=== PATIENT | male | born 1995 | race Caucasian/White ===

== ENCOUNTER 2018-11-30 22:31 | Emergency (ER) | payer OTHER ==
--- OUTSIDE RECORDS SUMMARY | 2018-11-30 22:46 | XMS REPORT | Continuity of Care Document ---
:1995 External Reference #:[id number] Author Name Leda Hernandez Care Team Providers Name Role Phone Ravinder Maria M.D. Primary Care Physician Unavailable Payers Type Date Identification Numbers Payment Provider Subscriber Effective: 2016 Policy Number: [id number] [employer] Number: [id number] [address] PayID: [id number] [place] [address] Advance Directives Description No Information Available Problems Description No Information Family History Date Family Member(s) Problem(s) Comments General No Current Problems Social History Type Date Description Comments Sex Unknown Lives With Roommate Occupation Student ETOH Use Denies alcohol use Tobacco Use Start: Unknown Patient has never smoked Smoking Status Reviewed: 11/21/18 Patient has never smoked Exercise Type/Frequency Exercises regularly Allergies, Adverse Reactions, Alerts Description No Known Drug Allergies Medications Medication Date Status Form Strength Qnty SIG Indications Ordering Provider Ibuprofen 200 00/00/00 Active Tablets 200mg 400-600mg Unknown 00 every 6 hours as needed for pain. No Active 11/03/19 Hx Unknown Medications 17 - 10/30/19 19 Immunizations Description No Information Available Vital Signs Date Vital Result Comment 11/21/2018 8:43am Height 67.5 inches 5'7.50" Weight 145.00 lb Heart Rate 70 /min BP Systolic 104 mmHg BP Diastolic 68 mmHg Respiratory Rate 12 /min Pain Level 1 BMI (Body Mass Index) 22.4 kg/m2 10/30/2018 1:29pm Height 67.5 inches 5'7.50" Weight 156.00 lb Heart Rate 72 /min BP Systolic 116 mmHg BP Diastolic 78 mmHg Body Temperature 97.1 F Pain Level 5 BMI (Body Mass Index) 24.1 kg/m2 07/25/2018 8:05am Height 67.5 inches 5'7.50" Weight 142.00 lb Heart Rate 70 /min BP Systolic 106 mmHg BP Diastolic 68 mmHg Respiratory Rate 12 /min Pain Level 0 BMI (Body Mass Index) 21.9 kg/m2 04/25/2017 9:29am Height 67.5 inches 5'7.50" Weight 140.00 lb Heart Rate 72 /min Respiratory Rate 15 /min Pain Level 2 BMI (Body Mass Index) 21.6 kg/m2 03/14/2017 9:37am Height 67.5 inches 5'7.50" Weight 140.00 lb Heart Rate 66 /min BP Systolic Sitting 110 mmHg BP Diastolic Sitting 70 mmHg Respiratory Rate 14 /min Body Temperature 96.2 F Pain Level 3 BMI (Body Mass Index) 21.6 kg/m2 11/03/2016 2:49pm Height 67 inches 5'7" Weight 140.00 lb Heart Rate 86 /min Respiratory Rate 18 /min BMI (Body Mass Index) 21.9 kg/m2 11/03/2016 2:23pm Pain Level 4 Results Description No Information Available Procedures Description No Information Available Encounters Type Date Location Provider Dx Diagnosis Office Visit 10/30/2018 [facility] M25.511 Pain in right 1:30p [facility] Suzy Evans MD shoulder 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 S43.401A Unspecified sprain of right shoulder joint, init encntr Office Visit 04/25/2017 9:30a [facility] M25.511 Pain in right Services [facility] shoulder [facility] S43.401D Unspecified sprain of right shoulder joint, subs encntr Office Visit 03/14/2017 9:30a Bindu Varela M25.511 Pain in right Services Of MD [facility] shoulder [facility] M75.51 Bursitis of right shoulder S43.491A Other sprain of right shoulder joint, initial encounter Office Visit 11/03/2016 2:30p [facility] M25.511 Pain in right Services [facility] shoulder [facility].A[facility] M75.41 Impingement syndrome of right shoulder Plan of Treatment Future Appointment(s):12/11/2018 3:15 pm - Garcia Evans [facility]11/21/2018 - Garcia Evans, MDM24.411 Recurrent dislocation, right shoulderFollow up:Follow up: as needed. Patient may call [facility] to schedule surgery prior to next clinic visit.
[2018-12-01] MEDS ORDERED: NS 0.9% 1000 ML** 1,000 ML IV ONE ×2 (00:37→01:45)
[2018-12-01] MEDS ORDERED: Ondansetron INJ* 2 MG/ML VIAL IV ONE (00:37)
[2018-12-01 00:52] LABS: ABS Basophils 0 10^3/ul (0-0.2); ABS Eosinophils 0 10^3/ul (0-0.6); ABS Lymphocytes 0.9 10^3/ul (1.0-4.8); ABS Monocytes 0.6 10^3/ul (0-0.8); ABS Neutrophils 6.8 10^3/ul (1.5-7.7); ABS Nucleated RBC 0 10^3/ul; Eosinophil % 0.4 %; Hematocrit 44 % (42-52); Hemoglobin 14.9 g/dl (14.0-18.0); Lymphocyte % 11.2 %; Mean Corpuscular HGB Conc 34 g/dl (31-36); Mean Corpuscular Hemoglobin 30 pg (27-31); Mean Corpuscular Volume 88 fL (80-94); Mean Platelet Volume 7.9 fL (7.4-10.4); Nucleated Red Blood Cells % 0; Platelet Count 268 10^3/ul (150-450); Red Blood Count 4.98 10^6/ul (4.00-5.40); Red Cell Distribution Width 13 % (10.5-15); White Blood Count 8.3 10^3/ul (3.5-10.8)
[2018-12-01 01:09] LABS: ALT 20 U/L (7-52); AST 18 U/L (13-39); Albumin 4.5 g/dL (3.2-5.2); Albumin/Globulin Ratio 1.7 (1-3); Alkaline Phosphatase 75 U/L (34-104); Anion Gap 9 mmol/L (2-11); BUN/Creatinine Ratio 16.2 (8-20); Blood Urea Nitrogen 16 mg/dL (6-24); CO2 Carbon Dioxide 26 mmol/L (22-32); Calcium 9.6 mg/dL (8.6-10.3); Chloride 101 mmol/L (101-111); EGFR African American 115.5 (>60); EGFR Non-African American 95.4 (>60); Globulin 2.6 g/dL (2-4); Glucose 113 mg/dL (70-100); Potassium 3.7 mmol/L (3.5-5.0); Sodium 136 mmol/L (135-145); Total Protein 7.1 g/dL (6.4-8.9)
[2018-12-01] MEDS ORDERED: Dicyclomine CAP* 10 MG PO ONE (01:19)
[2018-12-01] MEDS ORDERED: Acetaminophen TAB* 325 MG PO ONE (01:20)
[2018-12-01 01:48] LABS: Urine Appearance Clear; Urine Bilirubin Negative (Negative); Urine Blood Negative (Negative); Urine Color Straw; Urine Glucose Negative (Negative); Urine Ketones Negative (Negative); Urine Nitrite Negative (Negative); Urine Protein Negative (Negative); Urine Specific Gravity 1.006 (1.010-1.030); Urine Urobilinogen Negative (Negative)
[2018-12-01] MEDS ORDERED: Ondansetron INJ* 2 MG/ML VIAL ONE (02:05)
[2018-12-01] MEDS ORDERED: Metoclopramide IV* 5 MG/ML 2 ML VIAL IV ONE (02:05)
--- NOTE | 2018-12-01 03:11 | ED ---
Nausea/Vomiting/Diarrhea HPI - HPI Summary HPI Summary: Patient complains of sudden onset nausea vomiting diarrhea and crampy abdominal pain starting this a.m. Vomiting 8 today, diarrhea 15 times. Abdominal pain is diffuse, bilateral, constant, first 4/10. Abdominal pain improves with vomiting or bowel movement. Denies fever, cough, sore throat, CP, SOB, change in urine, penis or testicle symptoms. Medical history is none. Abdominal surgical history is none. - History of Current Complaint Chief Complaint: EDAbdPain Stated Complaint: FLU LIKE SYMPTOMS Time Seen by Provider: 12/01/18 00:35 Hx Obtained From: Patient Onset/Duration: Sudden Onset Timing: Constant Severity Initially: Mild Severity Currently: Mild Pain Intensity: 3 Pain Scale Used: 0-10 Numeric Location: Diffuse Character: Cramping Aggravating Factor(s): Nothing Alleviating Factor(s): Nothing Nausea/Vomiting Presence: Nauseated, Vomiting Vomiting Frequency: Every 15-60 minutes Vomiting Characteristics: Nonbilious Diarrhea Presence: Yes Diarrhea Frequency: Every 15-60 minutes Diarrhea Characteristics: Watery - Allergies/Home Medications Allergies/Adverse Reactions: Allergies Allergy/AdvReac Type Severity Reaction Status Date / Time No Known Allergies Allergy Verified 11/08/18 10:42 PMH/Surg Hx/FS Hx/Imm Hx Endocrine/Hematology History: Denies: Hx Diabetes Cardiovascular History: Denies: Hx Hypertension, Hx Pacemaker/ICD Respiratory History: Denies: Hx Asthma History: Denies: Hx Dialysis, Hx Renal Disease Sensory History: Denies: Hx Eye Prosthesis, Hx Hearing Aid Opthamlomology History: Denies: Hx Legally Blind EENT History: Denies: Hx Deafness Neurological History: Denies: Hx Dementia Psychiatric History: Denies: Hx Panic Disorder - Surgical History Surgery Procedure, Year, and Place: RIGHT SHOULDER WITH HARDWARE 2016 Infectious Disease History: No Infectious Disease History: Denies: Traveled Outside the [place] in Last 30 Days - Social History Alcohol Use: None Substance Use Type: Reports: None Smoking Status (MU): Never Smoked Tobacco Review of Systems Constitutional: Negative Eyes: Negative ENT: Negative Cardiovascular: Negative Respiratory: Negative Positive: Abdominal Pain, Vomiting, Diarrhea, Nausea Genitourinary: Negative Musculoskeletal: Negative Skin: Negative Neurological: Negative Psychological: Normal All Other Systems Reviewed And Are Negative: Yes Physical Exam - Summary Physical Exam Summary: Abdominal exam unremarkable In all quadrants. No active vomiting or diarrhea here in the ED. Triage Information Reviewed: Yes Vital Signs On Initial Exam: Initial Vitals Temp Pulse Resp BP Pulse Ox 100.7 F 96 16 139/83 97 11/30/18 22:36 11/30/18 22:36 11/30/18 22:36 11/30/18 22:36 11/30/18 22:36 Vital Signs Reviewed: Yes Appearance: Positive: Well-Appearing Skin: Positive: Warm Head/Face: Positive: Normal Head/Face Inspection Eyes: Positive: Normal Neck: Positive: Supple Respiratory/Lung Sounds: Positive: Clear to Auscultation Cardiovascular: Positive: Normal Abdomen Description: Positive: Nontender Musculoskeletal: Positive: Normal Neurological: Positive: Normal Psychiatric: Positive: Normal AVPU Assessment: Alert - [place] Coma Scale Best Eye Response: 4 - Spontaneous Best Motor Response: 6 - Obeys Commands Best Verbal Response: 5 - Oriented Coma Scale Total: 15 Diagnostics - Vital Signs Vital Signs Temp Pulse Resp BP Pulse Ox 12/01/18 02:39 64 121/47 96 12/01/18 02:09 82 143/49 96 12/01/18 02:00 74 99 12/01/18 01:39 86 137/52 98 12/01/18 01:09 86 128/62 99 12/01/18 01:00 79 99 12/01/18 00:41 90 97 12/01/18 00:39 87 134/67 96 11/30/18 22:36 100.7 F 96 16 139/83 97 - Laboratory Lab Results: Lab Results 12/01/18 12/01/18 12/01/18 Range/Units 00:44 00:44 00:44 WBC 8.3 (3.5-10.8) 10^3/ul RBC 4.98 (4.00-5.40) 10^6/ul Hgb 14.9 (14.0-18.0) g/dl Hct 44 (42-52) % MCV 88 (80-94) fL MCH 30 (27-31) pg MCHC 34 (31-36) g/dl RDW 13 (10.5-15) % Plt Count 268 (150-450) 10^3/ul MPV 7.9 (7.4-10.4) fL Neut % (Auto) 81.1 % Lymph % (Auto) 11.2 % [place] % (Auto) 6.9 % Eos % (Auto) 0.4 % Baso % (Auto) 0.4 % Absolute Neuts (auto) 6.8 (1.5-7.7) 10^3/ul Absolute Lymphs (auto) 0.9 L (1.0-4.8) 10^3/ul Absolute Monos (auto) 0.6 (0-0.8) 10^3/ul Absolute Eos (auto) 0 (0-0.6) 10^3/ul Absolute Basos (auto) 0 (0-0.2) 10^3/ul Absolute Nucleated RBC 0 10^3/ul Nucleated RBC % 0 Sodium 136 (135-145) mmol/L Potassium 3.7 (3.5-5.0) mmol/L Chloride 101 (101-111) mmol/L Carbon Dioxide 26 (22-32) mmol/L Anion Gap 9 (2-11) mmol/L BUN 16 (6-24) mg/dL Creatinine 0.99 (0.67-1.17) mg/dL Est GFR ( Amer) 115.5 (>60) Est GFR (Non-Af Amer) 95.4 (>60) BUN/Creatinine Ratio 16.2 (8-20) Glucose 113 H (70-100) mg/dL Lactic Acid 2.2 H* (0.5-2.0) mmol/L Calcium 9.6 (8.6-10.3) mg/dL Total Bilirubin 0.70 (0.2-1.0) mg/dL AST 18 (13-39) U/L ALT 20 (7-52) U/L Alkaline Phosphatase 75 (34-104) U/L C-Reactive Protein 34.00 H (<8.01) mg/L Total Protein 7.1 (6.4-8.9) g/dL Albumin 4.5 (3.2-5.2) g/dL Globulin 2.6 (2-4) g/dL Albumin/Globulin Ratio 1.7 (1-3) Lipase < 10 L (11.0-82.0) U/L Urine Color Urine Appearance Urine pH (5-9) Ur Specific [place] (1.010-1.030) Urine Protein (Negative) Urine Ketones (Negative) Urine Blood (Negative) Urine Nitrate (Negative) Urine Bilirubin (Negative) Urine Urobilinogen (Negative) Ur Leukocyte Esterase (Negative) Urine Glucose (Negative) 12/01/18 Range/Units 01:35 WBC (3.5-10.8) 10^3/ul RBC (4.00-5.40) 10^6/ul Hgb (14.0-18.0) g/dl Hct (42-52) % MCV (80-94) fL MCH (27-31) pg MCHC (31-36) g/dl RDW (10.5-15) % Plt Count (150-450) 10^3/ul MPV (7.4-10.4) fL Neut % (Auto) % Lymph % (Auto) % [place] % (Auto) % Eos % (Auto) % Baso % (Auto) % Absolute Neuts (auto) (1.5-7.7) 10^3/ul Absolute Lymphs (auto) (1.0-4.8) 10^3/ul Absolute Monos (auto) (0-0.8) 10^3/ul Absolute Eos (auto) (0-0.6) 10^3/ul Absolute Basos (auto) (0-0.2) 10^3/ul Absolute Nucleated RBC 10^3/ul Nucleated RBC % Sodium (135-145) mmol/L Potassium (3.5-5.0) mmol/L Chloride (101-111) mmol/L Carbon Dioxide (22-32) mmol/L Anion Gap (2-11) mmol/L BUN (6-24) mg/dL Creatinine (0.67-1.17) mg/dL Est GFR ( Amer) (>60) Est GFR (Non-Af Amer) (>60) BUN/Creatinine Ratio (8-20) Glucose (70-100) mg/dL Lactic Acid (0.5-2.0) mmol/L Calcium (8.6-10.3) mg/dL Total Bilirubin (0.2-1.0) mg/dL AST (13-39) U/L ALT (7-52) U/L Alkaline Phosphatase (34-104) U/L C-Reactive Protein (<8.01) mg/L Total Protein (6.4-8.9) g/dL Albumin (3.2-5.2) g/dL Globulin (2-4) g/dL Albumin/Globulin Ratio (1-3) Lipase (11.0-82.0) U/L Urine Color Straw Urine Appearance Clear Urine pH 6.0 (5-9) Ur Specific [place] 1.006 L (1.010-1.030) Urine Protein Negative (Negative) Urine Ketones Negative (Negative) Urine Blood Negative (Negative) Urine Nitrate Negative (Negative) Urine Bilirubin Negative (Negative) Urine Urobilinogen Negative (Negative) Ur Leukocyte Esterase Negative (Negative) Urine Glucose Negative (Negative) Result Diagrams: 12/01/18 00:44 12/01/18 00:44 Lab Statement: Any lab studies that have been ordered have been reviewed, and results considered in the medical decision making process. Naus/Vom/Diarrhea Course/Dx - Course Course Of Treatment: Patient complains of sudden onset nausea vomiting diarrhea and crampy abdominal pain starting this a.m. Vomiting 8 today, diarrhea 15 times. Abdominal pain is diffuse, bilateral, constant, first 4/10. Abdominal pain improves with vomiting or bowel movement. Denies fever, cough, sore throat , CP, SOB, change in urine, penis or testicle symptoms. Medical history is none. Abdominal surgical history is none. Physical exam:Abdominal exam unremarkable In all quadrants. No active vomiting or diarrhea here in the ED. Temperature 100.7. Vital signs otherwise within normal limits. WBC within normal limits. Lactic 2.2. Labs otherwise unremarkable. Patient given 2 L normal saline. Nausea controlled with Zofran 4 mg and Reglan 10 mg. Abdominal exam and labs do not warrant CT. Patient given Rx for Zofran and Bentyl. Advised to take Tylenol and ibuprofen for abdominal pain. Advised to return for any new or worsening symptoms. Patient understands and improves with plan. - Differential Dx/Diagnosis Provider Diagnosis: Nausea vomiting and diarrhea Condition At Discharge: Stable Discharge - Sign-Out/Discharge Documenting (check all that apply): Patient Departure Patient Received Moderate/Deep Sedation with Procedure: No - Discharge Plan Condition: Stable Disposition: HOME Prescriptions: Dicyclomine CAP* [Bentyl CAP*] 20 mg PO TID PRN 10 Days #60 cap PRN Reason: Pain Ondansetron ODT TAB* [Zofran 4 MG Odt TAB*] 4 mg PO Q8H PRN 4 Days #14 tab.odt PRN Reason: Nausea Patient Education Materials: Acute Nausea and Vomiting (ED), Acute Diarrhea (ED ) Referrals: Ravinder Maria MD [Primary Care Provider] - Additional Instructions: Use Zofran for nausea, eat meals 15 minutes after medication. Drink plenty of fluids to maintain hydration. Alternate Tylenol 650 mg with ibuprofen 600 and milligrams every 3 hours for abdominal pain and control of fever and body aches.. Follow-up with primary care. Return to the ED for any new or worsening symptoms. - Billing Disposition and Condition Condition: STABLE Disposition: Home
[2018-12-01 03:39] VITALS: BP 121/48
== END 2018-12-01 03:41 | disposition home or self-care (01) ==
LOC: ED 22:31
DX: R11.2 Nausea with vomiting, unspecified (principal); R19.7 Diarrhea, unspecified; R10.9 Unspecified abdominal pain
CPT/HCPCS: 36415; 80053; 81003; 83605; 83690; 85025; 86140; 96361; 96374; 96375; 99284; A9270-GY; J2405

== ENCOUNTER 2018-12-21 17:28 | Emergency (ER) | payer OTHER ==
[2018-12-21 17:39] VITALS: BP 135/63
[2018-12-21] MEDS ORDERED: Ibuprofen TAB* 600 MG PO ONE (17:46)
--- NOTE | 2018-12-21 17:46 | UC ---
Cardiac HPI - HPI Summary HPI Summary: 23 yo male with the onset of left sided CP 1-2 days ago increased pain with moving left arm or with deep breath - History of Current Complaint Chief Complaint: UCChestPain Stated Complaint: LEFT SIDE CHEST PAIN Time Seen by Provider: 12/21/18 17:38 Hx Obtained From: Patient Onset/Duration: Gradual Onset, Lasting Days Initial Severity: Mild Current Severity: Moderate Pain Intensity: 5 Chest Pain Location: Discrete at: - see image Character: Sharp/Stabbing Aggravating Factor(s): Movement, Deep Breaths Alleviating Factor(s): Rest Associated Signs & Symptoms: Positive: Chest Pain - Allergy/Home Medications Allergies/Adverse Reactions: Allergies Allergy/AdvReac Type Severity Reaction Status Date / Time No Known Allergies Allergy Verified 12/21/18 17:39 Home Medications: Home Medications NK [No Home Medications Reported] 12/21/18 [History Confirmed 12/21/18] PMH/Surg Hx/FS Hx/Imm Hx Previously Healthy: Yes - Surgical History Surgical History: Yes Surgery Procedure, Year, and Place: RIGHT SHOULDER WITH HARDWARE 2015 - Family History Known Family History: Positive: Cardiac Disease, Hypertension, Diabetes - Social History Alcohol Use: None Substance Use Type: None Smoking Status (MU): Never Smoked Tobacco Review of Systems All Other Systems Reviewed And Are Negative: Yes Constitutional: Positive: Negative Skin: Positive: Negative Eyes: Positive: Negative ENT: Positive: Negative Respiratory: Positive: Negative Cardiovascular: Positive: Chest Pain Gastrointestinal: Positive: Negative Genitourinary: Positive: Negative Motor: Positive: Negative Neurovascular: Positive: Negative Musculoskeletal: Positive: Negative Neurological: Positive: Negative Psychological: Positive: Negative Physical Exam Triage Information Reviewed: Yes Appearance: Well-Appearing, No Pain Distress, Well-Nourished Vital Signs: Initial Vital Signs Temp 98.0 F 12/21/18 17:33 Pulse 67 12/21/18 17:33 Resp 20 12/21/18 17:33 BP 135/63 12/21/18 17:33 Pulse Ox 99 12/21/18 17:33 Vital Signs Reviewed: Yes Eyes: Positive: Conjunctiva Clear ENT: Positive: Hearing grossly normal. Negative: Nasal congestion, Nasal drainage, Trismus, Muffled voice, Hoarse voice Neck: Positive: Supple, Nontender Respiratory: Positive: Lungs clear, Normal breath sounds, No respiratory distress. Negative: Chest non-tender Cardiovascular: Positive: RRR, No Murmur, Pulses Normal Abdomen Description: Positive: Nontender, No Organomegaly, Soft Bowel Sounds: Positive: Present Musculoskeletal: Positive: ROM Intact, No Edema Neurological: Positive: Alert Psychological Exam: Normal Skin Exam: Normal Images Front/Back of Body, Lg (Grand): 1 - point tenderness here Diagnostics - Radiology No standard instances Radiology Interpretation Completed By: ED Physician Summary of Radiographic Findings: NAD - EKG Cardiac Rate: NL Cardiac Rhythm: Sinus: Normal Ectopy: None ST Segment: Normal - Clinical Impression Provider Diagnosis: Acute chest wall pain Discharge - Sign-Out/Discharge Documenting (check all that apply): Patient Departure All imaging exams completed and their final reports reviewed: No - Discharge Plan Condition: Stable Disposition: HOME Patient Education Materials: Chest Wall Pain (ED) Referrals: Ravinder Maria MD [Primary Care Provider] - 1 Week (recheck in 1-2 weeks if not better) Additional Instructions: rest heat advil recheck for new or worsening symptoms offical XR report pending - Billing Disposition and Condition Condition: STABLE Disposition: Home
--- NOTE | 2018-12-22 08:28 | UC ---
- EKG/XRAY/CT Xray Comments: wet read correct Course/Dx - Diagnoses Provider Diagnoses: Acute chest wall pain Discharge - Sign-Out/Discharge Documenting (check all that apply): Post-Discharge Follow Up All imaging exams completed and their final reports reviewed: Yes - Discharge Plan Condition: Stable Disposition: HOME Patient Education Materials: Chest Wall Pain (ED) Referrals: Ravinder Maria MD [Primary Care Provider] - 1 Week (recheck in 1-2 weeks if not better) Additional Instructions: rest heat advil recheck for new or worsening symptoms offical XR report pending - Billing Disposition and Condition Condition: STABLE Disposition: Home
== END 2018-12-21 18:53 | disposition home or self-care (01) ==
LOC: UCCORT 17:28
DX: R07.89 Other chest pain (principal)
CPT/HCPCS: 71046; 93005; 99212; A9270-GY; G0463